=== PATIENT | female | born 1980 | race African-American/Black ===

== ENCOUNTER 2016-09-09 19:31 | Inpatient (IN) | payer OTHER ==
[~2016-09-09] VITALS: Ht 157.5 cm; Wt 73.0 kg
[2016-09-09] MEDS: LACTATED RINGER'S 1000 ML INJ 1,000 ML IV SCH ×2 (13:03→19:43)
[~2016-09-09 19:31] MED LIST: CITRIC ACID-SODIUM CITRATE LIQ 30 ML UDC PO ONE; LABE100T2 PO; PREN1CAP20 PO; ceFAZolin 2 GM PREMIX 50 ML IV ONE
[2016-09-09] MEDS ORDERED: LACTATED RINGER'S 1000 ML INJ 1,000 ML IV ONE (20:23)
--- NOTE | 2016-09-09 20:37 | HHI.HP ---
HPI Travel History International Travel<30 Days: No Contact w/Intl Traveler<30Days: No Known Affected Area: No History of Present Illness HPI This patient is a 36-year-old 3 para 2 EDC is September 26, 2016 presently at 37 weeks and 4 days she presents with the chief complaint of onset of contractions at 4:30 this morning she states that she's had leaking from her vagina No vaginal bleeding the baby is active care at [facility] high risk she was seen it when emma Robb last night sent home she was seen earlier today as well and sent home she is scheduled for a repeat section at [facility] on Monday morning care is complicated by advanced maternal age History of congestive heart failure Questionable history of [place] Chronic hypertension on [place] History of a fibrillation with external defibrillator History of lupus on no medication History of depression Ultrasound done in OB diagnostic on August 09 was selected gestational age is 34 weeks amniotic fluid index at that time was 11 vertex presentation the summary was the biometry is consistent with dates however the estimated weight is in the 20th percentile head circumference is less than the 5th percentile and the abdominal conference at the 12th percentile no abnormalities seen Limited anatomy due to gestational age normal amniotic fluid History Past Medical History Narrative Medical Patient is allergic to latex History of lupus History of chronic hypertension patient is on labetalol 150 mg by mouth twice a day History of heart disease Obstetric History Obstetric History Prior 1 Family History Family History: Negative Social History Alcohol Use: No Tobacco Use: No Substance Abuse: No Allergies-Medications (Allergen,Severity, Reaction): Coded Allergies: Latex (Verified Allergy, Unknown, 08/15/16) Home Meds Active Scripts W/O Vit A W/ Fe Carbo (Prenate Mini 18-0.6-0.4-350 mg)1 Cap Cap1 Tab PO DAILY #30 BOTTLE Ref 11 Prov:Loretta Parrish 02/23/16 Reported Medications Labetalol Hcl 100 Mg [id number] Mg PO BID 02/18/16 Review of Systems Gastrointestinal: Abdominal Pain Genitourinary: Other (leaking fluid) Physical Exam Narrative GENERAL: Well-nourished, well-developed patient. Patient is alert oriented 3 and cooperative in moderate distress secondary to uterine contractions SKIN: Warm and dry. HEAD: Normocephalic and atraumatic. EYES: No scleral icterus. No injection or drainage. ENT: No nasal drainage noted. Mucous membranes pink. Airway patent. NECK: Supple, trachea midline. No JVD. CARDIOVASCULAR: Regular rate and rhythm without murmurs, gallops, or rubs. No murmurs appreciated RESPIRATORY: Breath sounds equal bilaterally. No accessory muscle use. Lungs are clear ABDOMEN/GI: Abdomen soft, non-tender, bowel sounds present, no rebound, no guarding gravid consistent with 38 weeks gestation Gravid to [-] weeks size Fundal Height: [-] GENITOURINARY: External Genitalia: intact and normal in appearance BUS glands: [-] Cervix: [-] Midline Dilatation: [-] 2 cm Effacement: [-] 80% Station: [-] -2 station Presentation: [-] Vertex Membranes: [ ruptured] Uterine Contractions: [-] Irregular FHT's: Category: [-]1 Baseline: [-]150 Reactive: [-] + Variability: [-] Moderate ssjx-up-cbds variability Decels: [-] 0 EXTREMITIES: No cyanosis 2+ edema of her lower extremities reflexes are 2+ NEUROLOGICAL: Awake and alert. Motor and sensory grossly within normal limits. Five out of 5 muscle strength in all muscle groups. Normal speech. Data Data Vital Signs Reviewed: Yes (blood pressure in the 1 134/79 pulse is 79 she is afebrile) Orders Ob (2e) Additional Admit Info (09/09/16 20:13) Admit To Inpatient (09/09/16 20:23) Code Status (09/09/16 20:23) Vital Signs (Adult) .ON ADMISSION (09/09/16 20:23) Activity Oob Ad Shyla (09/09/16 20:23) ^ Heart (09/09/16 20:23) ^ Preps (09/09/16 20:23) Scd / [place] / Foot Pump NARCISA.QSHIFT (09/09/16 20:23) ^ Ultrasound For Locatio (09/09/16 20:23) Diet Npo (09/10/16 Breakfast) Lactated Ringer's 1000 Ml Inj (Lr 1000 M (09/09/16 20:23) Lactated Ringer's 1000 Ml Inj (Lr 1000 M (09/09/16 13:03) Cefazolin 2 Gm Premix (Ancef 2 Gm Premix (09/09/16 13:45) Citric Acid-Sodium Citrate Liq (Bicitra (09/09/16 14:15) Type And Screen (09/09/16 20:23) Complete Blood Count With Diff (09/09/16 20:23) Urinalysis - C+S If Indicated (09/09/16 20:23) Comprehensive Metabolic Panel (09/09/16 20:23) Electrocardiogram (09/09/16 ) Assessment/Plan Assessment and Plan The assessment is a 36-year-old 3 para 2 presently at 37 weeks and 4 days Premature rupture of membranes Early labor Previous 1 Advanced maternal age Chronic hypertension on labetalol History of heart disease Lupus Latex allergy Spoke with Dr. Pritchard at [facility] he reviewed the notes that he had on the patient she recently had an echocardiogram with a 57% ejection fraction has been cleared by cardiology to proceed with the section He offered to except her as a transfer if the patient wanted to be transferred. The patient however does not want to be transferred and wants to remain at [facility] Will notify anesthesia EKG is done its normal sinus rhythm normal EKG The procedure indications and complications have been fully discussed with the patient she understands and agrees Will proceed Plan; admit External monitoring CBC CMP uric Urinalysis Urine drug screen Spoken with Carolin Robb in an attempt to get a copy of her records however was told that they do not have access as that office is closed as well as medical records is closed 12-lead EKG We'll discuss with anesthesia Prep for repeat Procedure indications and complications have been fully discussed with the patient she understands and agrees desires to proceed Holli Childs MD Sep 09, 2016 20:36
[2016-09-09] MEDS ORDERED: COLA100C3 PO (20:53)
[2016-09-09] MEDS ORDERED: ALBUAER3 INH (20:53)
[2016-09-09] MEDS ORDERED: ASPI81CH CHEW (20:53)
[2016-09-09] MEDS ORDERED: ceFAZolin INJ 1,000 MG VIAL ONE (20:58)
[2016-09-09] MEDS ORDERED: LABETALOL HCL 200 MG TAB PO SCH (21:00)
[2016-09-09 21:11] LABS: AUTOMATED NEUTROPHIL # 5.1 TH/MM3 (1.8-7.7); BASOPHIL % 0.3 % (0.0-2.0); EOSINOPHIL % 0.5 % (0.0-4.0); HEMATOCRIT 35.3 % (35.0-46.0); HEMO FLAGS DIFF FINAL; LYMPH % 24.7 % (9.0-44.0); MEAN CELL VOLUME 92.5 FL (80.0-100.0); MEAN CORPUSCULAR HEMOGLOBIN 32.4 PG (27.0-34.0); MEAN CORPUSCULAR HGB CONC 35.1 % (32.0-36.0); MONO % 13.1 % (0.0-8.0); NEUT % 61.4 % (16.0-70.0); PLATELET COUNT 146 TH/MM3 (150-450); RED BLOOD COUNT 3.82 MIL/MM3 (4.00-5.30); RED CELL DISTRIBUTION WIDTH 13.3 % (11.6-17.2); WHITE BLOOD COUNT 8.3 TH/MM3 (4.0-11.0)
[2016-09-09] MEDS ORDERED: ONDANSETRON HCL 4 MG/2 ML VIAL ONE (21:13)
--- NOTE | 2016-09-09 21:14 | EKG ---
Date Performed: 09/09/2016 Time Performed: 20:46:16 PTAGE: 36 years EKG: Sinus rhythm NORMAL ECG PREVIOUS TRACING : 03/21/2014 20.52 No significant change DOCTOR: Michele Sinclair Interpretating Date/Time 09/09/2016 21:13:29
[2016-09-09 21:33] LABS: BACTERIA, URINE MOD /hpf; BLOOD, URINE MOD (NEG); COMMENT (UR) CULTURE INDICATED; CULTURE IF INDICATED CULTURE INDICATED; GLUCOSE,URINE NEG (NEG); KETONE, URINE NEG (NEG); MUCUS URINE FEW /lpf (OCC); NITRITE,URINE NEG (NEG); PH, URINE 6.5 (5.0-8.5); SQUAMOUS EPITHELIAL CELL URINE 14 /hpf (0-5); URINE COLOR YELLOW (YELLW/STRAW)
[2016-09-09] MEDS ORDERED: OXYTOCIN 10 UNIT/ML AMP ONE (21:44)
[2016-09-09] MEDS ORDERED: METHYLERGONOVINE MALEATE 0.2 MG/ML VIAL ONE (21:44)
[2016-09-09 21:46] LABS: ANION GAP 8 MEQ/L (5-15); AST (GOT) 14 U/L (15-37); BICARBONATE 22.8 MEQ/L (21.0-32.0); BLOOD UREA NITROGEN 7 MG/DL (7-18); CHLORIDE 108 MEQ/L (98-107); GLOMERULAR FILTRATION RATE 128 ML/MIN (>89); POTASSIUM 3.7 MEQ/L (3.5-5.1); SODIUM (NA) 139 MEQ/L (136-145)
[2016-09-09 21:49] LABS: ALKALINE PHOSPHATASE 261 U/L (45-117); ALT (GPT) 15 U/L (10-53); TOTAL BILIRUBIN ADULT 0.5 MG/DL (0.2-1.0)
[2016-09-09] MEDS ORDERED: EPIDURAL-DIPHENHYDRAMINE HCL 50 MG CAP PO PRN (22:00)
[2016-09-09] MEDS ORDERED: EPIDURAL-NO SYSTEMIC NARCOTICS XX PRN (22:00)
[2016-09-09] MEDS ORDERED: EPIDURAL-DIPHENHYDRAMINE HCL 50 MG/ML VIAL IV PUSH PRN (22:00)
[2016-09-09] MEDS ORDERED: EPIDURAL-DO NOT ADMINISTER ANTICOAGULANTS XX PRN (22:00)
[2016-09-09] MEDS ORDERED: EPIDURAL-NALOXONE HCL 0.4 MG/ML AMP IV PRN (22:00)
[2016-09-09] MEDS ORDERED: MORPHINE SULFATE PF 5 MG/10 ML VIAL ONE (22:56)
[2016-09-09] MEDS ORDERED: ACETAMINOPHEN 325 MG TAB PO PRN (23:00)
[2016-09-09] MEDS ORDERED: ZOLPIDEM TARTRATE 5 MG TAB PO PRN (23:00)
[2016-09-09] MEDS ORDERED: ONDANSETRON HCL 4 MG/2 ML VIAL IV PUSH PRN (23:00)
[2016-09-09] MEDS ORDERED: ACETAMINOPHEN 1000 MG/100 ML VIAL IV ONE (23:00)
[2016-09-09] MEDS ORDERED: OXYTOCIN 30 UNITS-500ML PREMIX 500 ML IV ONE (23:00)
[2016-09-09] MEDS ORDERED: KETOROLAC TROMETHAMINE 60 MG/2 ML (IM) VIAL IM PRN (23:00)
[2016-09-09] MEDS ORDERED: SODIUM CHLORIDE 0.9% FLUSH 5 ML FLUSH IV PRN (23:00)
[2016-09-09] MEDS: *MEPERIDINE 25 MG INJ VIAL PERIprocedural Use ONLY ONE (23:05)
--- NOTE | 2016-09-09 23:06 | PD.OP ---
Operative Report Date of Surgery: Sep 09, 2016 Preoperative Diagnosis: Intrauterine at 37 weeks Previous section Multiparity Premature rupture membranes Advanced maternal age History of cardiac disease Chronic hypertension Postoperative Diagnosis: Same Meconium stained Procedure: Repeat low segment transverse section Bilateral tubal ligation Anesthesia: Spinal Surgeon: Holli Calderon Windows Technical Specialist(s): OR staff Resident Surgeon: None Operation and Findings: Preop diagnosis : ( ) Anesthesia: (Spinal ) Anesthesiologist:: ( Rey ) Estimated blood loss: (800 cc ) Sponge and instrument count: (Correct ) Drains: (None ) Complications: (None ) Indications for procedure: ( ) Findings: (Viable male infant weight 2555 g Apgars of 8 at 1 minute 9 at 5 minutes light meconium ) Timeout done The patient was taken to the operating room after appropriate levels of spinal anesthesia were achieved she was placed in the supine position. A Barbosa catheter was inserted under sterile conditions and draining adequate clear urine. Intermittent compression hoses were placed and functioning. Bovie pad was placed and grounded. The abdomen was shaved prepped and draped in the usual sterile fashion. A transverse Pfannenstiel incision was made carried down through the skin subcutaneous tissue. The fascia was opened transversely. from the muscles in the midline. The rectus muscles were . Peritoneal cavity opened and the abdominal cavity entered. The bladder flap was taken down transversely and a low segment transverse incision made into the lower uterine segment. The fluid was ( lightly meconium-stained). The infant was vertex. The vertex was delivered nose and mouth suctioned well the remainder of the body was then delivered. Cord doubly clamped and cut and the infant handed over to the awaiting nursing staff. The placenta spontaneously delivered intact with fundal massage. The uterus was then exteriorized cleaned of excessive blood and debris. The incision was then closed with 0 chromic in a continuous interlocking stitch. Single-layer closure. Bleeding from the right uterine artery controlled Tubes and ovaries were inspected and found to be normal. Tubal ligation was then done the right tube was grasped in the ampullary portion and an avascular portion of the nasal salpinx was traversed distal and proximal ties of O plain were placed on the tube and the intervening tube was removed exposed ostia was were cauterized no active bleeding same procedure done on the left side time the left tube. The abdominal cavity was then irrigated. The uterus placed back into the abdomen. Paracolic gutters cleaned of excessive blood and debris. Interceed was then placed over the incision and the anterior surface of the uterus in an inverted T. The peritoneum was then closed with 2-0 Vicryl. The muscles reapproximated. Inspection of the muscle bed demonstrated no bleeding. The fascia was then closed with 0 Vicryl in a continuous stitch. The subcutaneous tissue was irrigated bleeders controlled with Bovie. Isabelle's fascia closed with 2-0 Vicryl. The skin was closed using ( subcuticular stitch on 3-0 Monocryl on a Juma needle). The uterus was massaged clearing blood and clots. The patient was cleaned. Pressure dressing and abdominal binder placed. Patient then transferred to the recovery room in stable condition, where her vital signs are (stable with blood pressures 120s over 60s ). Urine is clear and adequate. Baby transferred to the nursery in stable condition. Patient be monitored on CICU overnight Holli Childs MD Sep 09, 2016 23:05
[2016-09-10] VITALS (12 sets, daily range): BP systolic 135–146; BP diastolic 73–99; PULSE 65–90; RESP 18–20; TEMP 98.3–98.6; O2SAT 97–100
[2016-09-10] MEDS: LACTATED RINGER'S 1000 ML INJ 1,000 ML IV SCH ×5 (02:23→12:59)
[2016-09-10 04:23] LABS: AMPHETAMINE, URINE NEG (NEG); BARBITURATES, URINE NEG (NEG); COCAINE, URINE NEG (NEG)
[2016-09-10 06:26] LABS: AUTOMATED NEUTROPHIL # 11.3 TH/MM3 (1.8-7.7); BASOPHIL % 0.3 % (0.0-2.0); HEMATOCRIT 31.6 % (35.0-46.0); HEMO FLAGS DIFF FINAL; LYMPH % 9.4 % (9.0-44.0); LYMPHOCYTE # 1.3 TH/MM3 (1.0-4.8); MEAN CELL VOLUME 93.5 FL (80.0-100.0); MEAN CORPUSCULAR HEMOGLOBIN 31.3 PG (27.0-34.0); MEAN CORPUSCULAR HGB CONC 33.5 % (32.0-36.0); MONO % 6.9 % (0.0-8.0); NEUT % 83.4 % (16.0-70.0); PLATELET COUNT 133 TH/MM3 (150-450); RED BLOOD COUNT 3.38 MIL/MM3 (4.00-5.30); RED CELL DISTRIBUTION WIDTH 13.9 % (11.6-17.2); WHITE BLOOD COUNT 13.5 TH/MM3 (4.0-11.0)
[2016-09-10] MEDS: oxyCODONE/ACETAMINOPHEN 5 MG/325 MG TAB PO PRN ×4 (08:07→21:54)
[2016-09-10] MEDS: SODIUM CHLORIDE 0.9% FLUSH 5 ML FLUSH IV SCH ×2 (08:08→20:46)
[2016-09-10] MEDS ORDERED: OXYTOCIN 30 UNITS-500ML PREMIX 500 ML IV PRN (09:00)
--- NOTE | 2016-09-10 09:34 | HHI.OB ---
Subjective Post Operative Day: 1 Remarks Postoperative day number 1. AFVSS overnight. Pain controlled. Incision not draining. Decreased lochia. Denies dysuria. No breast tenderness. She is feeding the baby via bottle. Appetite good. No nausea or vomiting. Positive flatus. Negative bowel movement. Ambulating well. Denies calf pain, shortness of breath, or cough. Otherwise, she is doing well this morning and has no other complaints. Objective Vitals/I&O Vital Signs Date Time Temp Pulse Resp B/P Pulse Ox O2 Delivery O2 Flow Rate FiO2 09/10/16 08:11 98.3 74 18 141/87 97 09/10/16 08:11 97 Room Air 09/10/16 06:00 71 09/10/16 05:00 74 09/10/16 04:00 98.3 72 20 135/73 100 09/10/16 04:00 72 09/10/16 03:00 68 09/10/16 02:00 74 09/10/16 01:30 65 09/10/16 01:20 98.6 65 20 146/99 99 09/10/16 00:30 98.2 69 14 140/88 96 Nasal Cannula 3 09/10/16 00:15 60 14 142/83 96 Nasal Cannula 3 09/10/16 00:00 77 16 145/79 97 Nasal Cannula 3 09/09/16 23:45 70 16 135/83 96 Nasal Cannula 3 09/09/16 23:30 81 16 129/81 96 Nasal Cannula 3 09/09/16 23:15 62 16 149/86 94 Nasal Cannula 3 09/09/16 23:02 98.4 74 16 124/66 89 Nasal Cannula 3 Intake & Output 09/10/16 09/10/16 07:00 19:00 Intake Total 2980 ml Output Total 1950 ml Balance 1030 ml Intake Oral 480 ml IV Total 1000 ml Other 1500 ml Output Urine Total 1250 ml Estimated Blood Loss 500 ml Other 200 ml # Bowel Movements 0 Result Diagram: 09/10/1652109/09/162027 Objective Remarks GENERAL: Well-nourished, well-developed patient. CARDIOVASCULAR: Regular rate and rhythm without murmurs, gallops, or rubs. RESPIRATORY: Breath sounds equal bilaterally. No accessory muscle use. ABDOMEN/GI: Abdomen soft, non-tender, bowel sounds present. Incision: Clean, dry and intact. Fundus: Firm, non-tender at umbilicus. GENITOURINARY: Light to moderate bleeding. EXTREMITIES: No cyanosis or edema, non-tender, without signs of DVT. Medications and IVs Current Medications Medications (Trade) Dose Ordered Sig/Mami Route Start Time Stop Time Status Last Admin Lactated Ringer's 1,000 ml @ 150 mls/hr Q6H40M IV 09/09/16 13:03 09/10/16 08:08 (Lr 1000 ml Inj) 1,000 ml @ 100 mls/hr Q10H IV 09/10/16 03:55 09/10/16 23:54 09/10/16 04:47 (NS Flush) 2 ml BID IV 09/10/16 09:00 (NS Flush) 2 ml UNSCH PRN IV 09/09/16 23:00 (Mylicon Chew) 80 mg QID PRN PO 09/09/16 23:00 (Tylenol) 650 mg Q6H PRN PO 09/09/16 23:00 (Motrin) 600 mg Q6H PRN PO 09/09/16 23:00 (Toradol Inj) 30 mg Q6H PRN IM 09/09/16 23:00 09/10/16 22:59 09/10/16 04:13 (Percocet 5-325 Mg) 1 tab Q4H PRN PO 09/09/16 23:00 09/10/16 08:07 Oxycodone/ Acetaminophen 2 tab 2 tab Q4H PRN PO 09/09/16 23:00 (Ancef Inj/NS Inj) 100 ml @ 200 mls/hr Q8H IV 09/10/16 05:00 09/10/16 13:29 09/10/16 04:44 (Abbey-Colace) 2 tab Q12H PRN PO 09/09/16 23:00 (Ambien) 5 mg HS PRN PO 09/09/16 23:00 (M-M-R Ii Inj) 0.5 ml ONCE ONCE SQ 09/10/16 16:00 09/10/16 16:01 (Boostrix Inj) 0.5 ml ONCE ONCE IM 09/10/16 16:00 09/10/16 16:01 (Zofran Inj) 4 mg Q6H PRN IV PUSH 09/09/16 23:00 09/10/16 08:07 (Trandate) 100 mg Q12HR PO 09/10/16 09:00 Miscellaneous Information NO SYSTEMIC NARCOTICS TO BE GIVEN FO... UNSCH PRN XX 09/09/16 22:00 09/10/16 21:59 (Narcan Inj) 0.4 mg UNSCH PRN IV 09/09/16 22:00 09/10/16 21:59 (Benadryl Inj) 25 mg Q6H PRN IV PUSH 09/09/16 22:00 09/10/16 21:59 09/10/16 01:07 (Benadryl) 50 mg Q6H PRN PO 09/09/16 22:00 09/10/16 21:59 Miscellaneous Information ALL NURSING DEPARTMENTS UNSCH PRN XX 09/09/16 22:00 09/10/16 21:59 (Pneumovax-23 Inj) 25 mcg ONCE ONCE IM 09/11/16 10:00 09/11/16 10:01 (Flu (Quadrivalent) Vaccine Inj) 0.5 ml ONCE ONCE IM 09/11/16 10:00 09/11/16 10:01 Assessment/Plan Problem List: (1) High risk due to history of previous obstetrical problem, antepartum (2) Myocardial infarct, old (3) delivery delivered (4) care following delivery Assessment and Plan 36 y/o female who is POD# 1 s/p CXN. -Continue routine care. -Percocet and Motrin PRN pain. -Encouraged OOB. Advised pelvic rest for 6 wks. Will need a f/u appt. in 1 wk for incision check. -Re: ctrl, she understands this time. -D/c in 1-2 more days. 2. Old [place] with ejection fraction at 35% -Following recommendations per snow removing supervisor -will transfer to Mother baby unit with q4 monitoring entire hospitalization -Sinus rhythm overnight -Any complaints of chest pain will transfer to cardiac unit wdw OB attending Discharge Planning Plan for discharge next 2-3 days Johnathan Hines MD R2 Sep 10, 2016 09:34
[2016-09-10] MEDS: LABETALOL HCL 100 MG TAB PO SCH ×2 (10:02→20:43)
[2016-09-10] MEDS: IBUPROFEN 600 MG TAB PO PRN ×3 (11:50→23:37)
[2016-09-10] MEDS: SIMETHICONE 80 MG CHEWABLE TAB PO PRN (11:50)
[2016-09-10] MEDS ORDERED: DIPHTH/TETANUS/ACEL PERTUSSIS (BOOSTER) 0.5 ML VIAL/PFS IM ONE (16:00)
[2016-09-10] MEDS ORDERED: MEASLES, MUMPS, RUBELLA VACCINE 0.5 ML VIAL SQ ONE (16:00)
[2016-09-10] MEDS: DOCUSATE SODIUM 50 MG/SENNA 8.6 MG TAB PO PRN (20:43)
[2016-09-11] MEDS: SIMETHICONE 80 MG CHEWABLE TAB PO PRN (01:55)
[2016-09-11] MEDS: oxyCODONE/ACETAMINOPHEN 5 MG/325 MG TAB PO PRN ×5 (01:55→21:45)
[2016-09-11 03:25] VITALS: BP 115/82; PULSE 71; RESP 18; TEMP 97.9
[2016-09-11] MEDS: LACTATED RINGER'S 1000 ML INJ 1,000 ML IV SCH ×2 (05:03→09:31)
[2016-09-11] MEDS: IBUPROFEN 600 MG TAB PO PRN ×4 (05:48→23:18)
[2016-09-11 07:50] VITALS: BP 136/88; PULSE 78; RESP 16; TEMP 98.1
--- NOTE | 2016-09-11 08:11 | HHI.OB ---
Subjective Post Operative Day: 2 Remarks Postoperative day number 2. AFVSS overnight. Pain controlled. Incision not draining. Decreased lochia. Denies dysuria. No breast tenderness. She is feeding the baby via bottle. Appetite good. No nausea or vomiting. Positive flatus. Negative bowel movement. Ambulating well. Denies calf pain, shortness of breath, or cough. Otherwise, she is doing well this morning and has no other complaints. Objective Vitals/I&O Vital Signs Date Time Temp Pulse Resp B/P Pulse Ox O2 Delivery O2 Flow Rate FiO2 09/11/16 03:25 97.9 71 18 115/82 09/11/16 03:25 18 09/10/16 20:43 18 09/10/16 20:43 18 09/10/16 10:00 73 09/10/16 09:00 90 09/10/16 08:11 98.3 74 18 141/87 97 09/10/16 08:11 97 Room Air Result Diagram: 09/10/1652109/09/162027 Objective Remarks GENERAL: Well-nourished, well-developed patient. CARDIOVASCULAR: Regular rate and rhythm without murmurs, gallops, or rubs. RESPIRATORY: Breath sounds equal bilaterally. No accessory muscle use. ABDOMEN/GI: Abdomen soft, non-tender, bowel sounds present. Incision: Clean, dry and intact. Fundus: Firm, non-tender at umbilicus. GENITOURINARY: Light to moderate bleeding. EXTREMITIES: No cyanosis or edema, non-tender, without signs of DVT. Medications and IVs Current Medications Medications (Trade) Dose Ordered Sig/Mami Route Start Time Stop Time Status Last Admin (Lr 1000 ml Inj) 1,000 ml @ 150 mls/hr Q6H40M IV 09/09/16 13:03 09/10/16 08:08 (NS Flush) 2 ml BID IV 09/10/16 09:00 09/10/16 20:46 (NS Flush) 2 ml UNSCH PRN IV 09/09/16 23:00 (Mylicon Chew) 80 mg QID PRN PO 09/09/16 23:00 09/11/16 01:55 (Tylenol) 650 mg Q6H PRN PO 09/09/16 23:00 (Motrin) 600 mg Q6H PRN PO 09/09/16 23:00 09/11/16 05:48 (Percocet 5-325 Mg) 1 tab Q4H PRN PO 09/09/16 23:00 09/11/16 05:48 (Percocet 5-325 Mg) 2 tab Q4H PRN PO 09/09/16 23:00 09/11/16 01:55 (Abbey-Colace) 2 tab Q12H PRN PO 09/09/16 23:00 09/10/16 20:43 (Ambien) 5 mg HS PRN PO 09/09/16 23:00 (Zofran Inj) 4 mg Q6H PRN IV PUSH 09/09/16 23:00 09/10/16 08:07 (Trandate) 100 mg Q12HR PO 09/10/16 09:00 09/10/16 20:43 (Pneumovax-23 Inj) 25 mcg ONCE ONCE IM 09/11/16 10:00 09/11/16 10:01 (Flu (Quadrivalent) Vaccine Inj) 0.5 ml ONCE ONCE IM 09/11/16 10:00 09/11/16 10:01 Assessment/Plan Problem List: (1) High risk due to history of previous obstetrical problem, antepartum (2) Myocardial infarct, old (3) delivery delivered (4) care following delivery Assessment and Plan 36 y/o female who is POD# 2 s/p CXN. -Continue routine care. -Percocet and Motrin PRN pain. -Encouraged OOB. Advised pelvic rest for 6 wks. Will need a f/u appt. in 1 wk for incision check. -Re: ctrl, she is uncertain at this time -D/c planned for tomorrow 2. Old [place] with ejection fraction at 35% -Following recommendations per ultrasonic cleaner -Continue to monitor on Mother baby unit with q4 monitoring entire hospitalization -Denied chest pain overnight -Any complaints of chest pain will transfer to cardiac unit wdw OB attending Discharge Planning Plan for discharge tomorrow Johnathan Hines MD R2 Sep 11, 2016 08:11
[2016-09-11] MEDS: SODIUM CHLORIDE 0.9% FLUSH 5 ML FLUSH IV SCH ×2 (09:00→21:45)
--- NOTE | 2016-09-11 09:02 | HHI.OB ---
Subjective Post Operative Day: 2 Remarks Pt doing well , tolerating diet, normal bowel bladder function positive flatus , pt seen with the family medicine residents and agree with their evaluation and plan. She'll be discharged tomorrow Objective Vitals/I&O Vital Signs Date Time Temp Pulse Resp B/P Pulse Ox O2 Delivery O2 Flow Rate FiO2 09/11/16 07:50 98.1 78 16 136/88 09/11/16 03:25 97.9 71 18 115/82 09/11/16 03:25 18 09/10/16 20:43 18 09/10/16 20:43 18 09/10/16 10:00 73 Result Diagram: 09/10/1622 09/09/162027 Objective Remarks GENERAL: Well-nourished, well-developed patient. CARDIOVASCULAR: Regular rate and rhythm without murmurs, gallops, or rubs. RESPIRATORY: Breath sounds equal bilaterally. No accessory muscle use. ABDOMEN/GI: Abdomen soft, non-tender, bowel sounds present. Incision: Clean, dry and intact. Fundus: Firm, non-tender at umbilicus. GENITOURINARY: Light to moderate bleeding. EXTREMITIES: No cyanosis or edema, non-tender, without signs of DVT. Medications and IVs Current Medications Medications (Trade) Dose Ordered Sig/Mami Route Start Time Stop Time Status Last Admin (Lr 1000 ml Inj) 1,000 ml @ 150 mls/hr Q6H40M IV 09/09/16 13:03 09/10/16 08:08 (NS Flush) 2 ml BID IV 09/10/16 09:00 09/10/16 20:46 (NS Flush) 2 ml UNSCH PRN IV 09/09/16 23:00 (Mylicon Chew) 80 mg QID PRN PO 09/09/16 23:00 09/11/16 01:55 (Tylenol) 650 mg Q6H PRN PO 09/09/16 23:00 (Motrin) 600 mg Q6H PRN PO 09/09/16 23:00 09/11/16 05:48 (Percocet 5-325 Mg) 1 tab Q4H PRN PO 09/09/16 23:00 09/11/16 05:48 (Percocet 5-325 Mg) 2 tab Q4H PRN PO 09/09/16 23:00 09/11/16 01:55 (Abbey-Colace) 2 tab Q12H PRN PO 09/09/16 23:00 09/10/16 20:43 (Ambien) 5 mg HS PRN PO 09/09/16 23:00 (Zofran Inj) 4 mg Q6H PRN IV PUSH 09/09/16 23:00 09/10/16 08:07 (Trandate) 100 mg Q12HR PO 09/10/16 09:00 09/10/16 20:43 (Pneumovax-23 Inj) 25 mcg ONCE ONCE IM 09/11/16 10:00 09/11/16 10:01 (Flu (Quadrivalent) Vaccine Inj) 0.5 ml ONCE ONCE IM 09/11/16 10:00 09/11/16 10:01 Assessment/Plan Problem List: (1) High risk due to history of previous obstetrical problem, antepartum (2) Myocardial infarct, old (3) delivery delivered (4) care following delivery Assessment and Plan 36 y/o female who is POD# 2 s/p CXN. -Continue routine care. -Percocet and Motrin PRN pain. -Encouraged OOB. Advised pelvic rest for 6 wks. Will need a f/u appt. in 1 wk for incision check. -Re: ctrl, she is uncertain at this time -D/c planned for tomorrow 2. Old [place] with ejection fraction at 35% -Following recommendations per research hydrologist -Continue to monitor on Mother baby unit with q4 monitoring entire hospitalization -Denied chest pain overnight -Any complaints of chest pain will transfer to cardiac unit wdw OB attending Discharge Planning Plan for discharge tomorrow Juan Diego Rodriguez II, MD Sep 11, 2016 09:02
[2016-09-11] MEDS: LABETALOL HCL 100 MG TAB PO SCH ×2 (09:24→21:45)
[2016-09-11] MEDS ORDERED: INFLUENZA VIRUS VACCINE (QUADRIVALENT) 0.5 ML SYR IM ONE (10:00)
[2016-09-11] MEDS ORDERED: PNEUMOCOCCAL POLYVALENT INJ 25 MCG/0.5 ML SYR IM ONE (10:00)
[2016-09-11] MEDS: DOCUSATE SODIUM 50 MG/SENNA 8.6 MG TAB PO PRN (12:07)
[2016-09-11 15:00] VITALS: BP 140/90; PULSE 72; RESP 18
[2016-09-12] MEDS: DOCUSATE SODIUM 50 MG/SENNA 8.6 MG TAB PO PRN (01:29)
[2016-09-12] MEDS: oxyCODONE/ACETAMINOPHEN 5 MG/325 MG TAB PO PRN ×3 (01:29→09:47)
[2016-09-12] MEDS: IBUPROFEN 600 MG TAB PO PRN ×2 (06:00→12:29)
[2016-09-12] MEDS: SIMETHICONE 80 MG CHEWABLE TAB PO PRN ×2 (08:26→12:28)
[2016-09-12] MEDS: LABETALOL HCL 100 MG TAB PO SCH (08:26)
[2016-09-12 09:05] VITALS: BP 162/109; PULSE 80; RESP 16
[2016-09-12] MEDS ORDERED: LABE100T2 PO (09:33)
[2016-09-12] MEDS ORDERED: SENN1TAB PO (09:33)
[2016-09-12] MEDS ORDERED: IBUP-232 PO (09:33)
[2016-09-12] MEDS ORDERED: SIME80CH PO (09:33)
--- NOTE | 2016-09-12 09:37 | HHI.DCPOC ---
Discharge Care Plan Diagnosis: (1) Myocardial infarct, old (2) History of lupus (3) Chronic heart failure (4) Hypertension affecting Goals to Promote Your Health * To prevent worsening of your condition and complications * To maintain your health at the optimal level Directions to Meet Your Goals Take your medications as prescribed Follow your dietary instruction Follow activity as directed Keep your appointments as scheduled Take your immunizations and boosters as scheduled If your symptoms worsen call your PCP, if no PCP go to Urgent Care Center or Emergency Room Smoking is Dangerous to Your Health. Avoid second hand smoke Call the 24-hour hour crisis hotline for domestic abuse at Adonis Elkins MD R2 Sep 12, 2016 09:37
--- NOTE | 2016-09-12 09:53 | HHI.OB ---
Subjective Post Operative Day: 3 Remarks Postoperative day number 3. AFVSS overnight. Pain well-controlled. Incision not draining. Decreased lochia. Denies dysuria. No breast tenderness. She is feeding the baby via bottle. Appetite good. No nausea or vomiting. Endorses flatus. No bowel movement. Ambulating well. Denies calf pain, shortness of breath, or cough. Denies headache, blurry vision, lightheadedness/dizziness. Otherwise, she is doing well this morning and has no other complaints. (Allen Arnold MD R1) Objective Vitals/I&O Vital Signs Date Time Temp Pulse Resp B/P Pulse Ox O2 Delivery O2 Flow Rate FiO2 09/12/16 03:40 18 09/11/16 20:25 18 09/11/16 15:00 72 18 140/90 (Allen Arnold MD R1) Result Diagram: 09/10/1652109/09/162027 Objective Remarks GENERAL: Well-nourished, well-developed patient. CARDIOVASCULAR: Regular rate and rhythm without murmurs, gallops, or rubs. RESPIRATORY: Breath sounds equal bilaterally. No accessory muscle use. ABDOMEN/GI: Abdomen soft, non-tender, bowel sounds present. Incision: Clean, dry and intact. Fundus: Firm, non-tender at umbilicus. GENITOURINARY: Light to moderate bleeding. EXTREMITIES: No cyanosis or edema, non-tender, without signs of DVT. Medications and IVs Current Medications Medications (Trade) Dose Ordered Sig/Mami Route Start Time Stop Time Status Last Admin (Lr 1000 ml Inj) 1,000 ml @ 150 mls/hr Q6H40M IV 09/09/16 13:03 09/10/16 08:08 (NS Flush) 2 ml BID IV 09/10/16 09:00 09/11/16 21:45 (NS Flush) 2 ml UNSCH PRN IV 09/09/16 23:00 (Mylicon Chew) 80 mg QID PRN PO 09/09/16 23:00 09/12/16 08:26 (Tylenol) 650 mg Q6H PRN PO 09/09/16 23:00 (Motrin) 600 mg Q6H PRN PO 09/09/16 23:00 09/12/16 06:00 (Percocet 5-325 Mg) 1 tab Q4H PRN PO 09/09/16 23:00 09/12/16 05:59 (Percocet 5-325 Mg) 2 tab Q4H PRN PO 09/09/16 23:00 09/11/16 01:55 (Abbey-Colace) 2 tab Q12H PRN PO 09/09/16 23:00 09/12/16 01:29 (Ambien) 5 mg HS PRN PO 09/09/16 23:00 (Zofran Inj) 4 mg Q6H PRN IV PUSH 09/09/16 23:00 09/10/16 08:07 (Trandate) 100 mg Q12HR PO 09/10/16 09:00 09/12/16 08:26 (Allen Arnold MD R1) Assessment/Plan Problem List: (1) High risk due to history of previous obstetrical problem, antepartum (2) Myocardial infarct, old (3) delivery delivered (4) care following delivery Assessment and Plan 36 y/o female who is POD# 3 s/p CXN. -Continue routine care. -Percocet and Motrin PRN pain. -Encouraged OOB. Advised pelvic rest for 6 wks. Will need a f/u appt. in 1 wk for incision check. -Re: ctrl, she is uncertain at this time -D/c today 2. 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 Hypertension - 175/107 this morning. Asymptomatic - Decreased to systolic 150-160s after morning dose of labetalol - Will re-evaluate later this morning. - Continue labetalol 100mg BID, may increased dose or frequency based on readings later today julisa Trevizo Discharge Planning Plan for discharge today (Allen Arnold MD R1) Attending Attestation The exam, history, and the medical decision-making described in the above note were completed with the assistance of the resident provider. I reviewed and agree with the findings presented. I attest that I had a [id number] encounter with the patient on the same day, and personally performed and documented my assessment and findings in the medical record. (Tiffanie Trevizo MD) Allen Arnold MD R1 Sep 12, 2016 09:52 Tiffanie Trevizo MD Sep 12, 2016 10:01
[2016-09-12 10:05] VITALS: BP 150/98; PULSE 76; RESP 16
[2016-09-16 13:47] LABS: OBMETHADONE UR NEG (NEG); PHENCYCLIDINE URINE NEG (NEG)
[2016-09-16 13:48] LABS: BATH SALTS (MDPV) UR NEG (NEG); ECSTASY (MDMA) UR NEG (NEG); HEROIN (6-ACETYLMORPHINE) UR NEG (NEG); K2 SPICE UR NEG (NEG); OXYCODONE (PERCODAN) NEG (NEG)
[2016-09-21] MEDS ORDERED: IBUP-232 PO (14:51)
[2016-09-21] MEDS ORDERED: FURO1TAB62 PO (14:52)
[2016-10-13] MEDS ORDERED: SIME80CH CHEW (14:32)
[2016-10-13] MEDS ORDERED: BUTA1CAP PO (14:32)
[2016-10-13] MEDS ORDERED: POTA-243 PO (14:32)
[2016-10-13] MEDS ORDERED: IBUP-232 PO (14:42)
[2016-10-13] MEDS ORDERED: PROZ20CA11 PO (14:42)
== END 2016-09-12 12:33 | disposition home or self-care (01) | DRG 765 ==
LOC: HOBED 19:31 → H2EB 20:13 → HCIS 09-10 00:53 → H1EA 09-10 10:55
PROVIDERS: ADMIT Obstetrics & Gynecology; ATTEND Obstetrics & Gynecology
PROC: 10D00Z1 Extraction of Products of Conception, Low, Open Approach (ICD-10-PCS; principal; 2016-09-09)
PROC: 0UB70ZZ Excision of Bilateral Fallopian Tubes, Open Approach (ICD-10-PCS; 2016-09-09)
DX: O34.219 Maternal care for unspecified type scar from previous cesarean delivery (principal); O10.92 Unspecified pre-existing hypertension complicating childbirth; O26.893 Other specified pregnancy related conditions, third trimester; M32.9 Systemic lupus erythematosus, unspecified; O42.92 Full-term premature rupture of membranes, unspecified as to length of time between rupture and onset of labor; O77.0 Labor and delivery complicated by meconium in amniotic fluid; O09.523 Supervision of elderly multigravida, third trimester; I25.2 Old myocardial infarction; Z3A.37 37 weeks gestation of pregnancy; Z37.0 Single live birth; Z30.2 Encounter for sterilization; Z91.040 Latex allergy status; Z23 Encounter for immunization
CPT/HCPCS: 80053; 80307; 81001; 84112; 85025; 86403; 86850; 86900; 86901; 87086; 88302; 90686; 90715; 90732; 93005; 99285; G0481; J0131; J0690; J1200; J1885; J2175; J2210; J2274; J2405; J2590; J7120; Q2038

== ENCOUNTER 2017-05-15 13:44 | Emergency (ER) | payer BC, OTHER ==
[~2017-05-15] VITALS: Ht 160 cm; Wt 68.0 kg
[~2017-05-15 13:44] MED LIST changes: +ALBUAER3 INH; +ASPI81CH CHEW; +BUTA1CAP PO; -CITRIC ACID-SODIUM CITRATE LIQ 30 ML UDC PO ONE; +FURO1TAB62 PO; +IBUP-232 PO; +POTA-243 PO; -PREN1CAP20 PO; +PROZ20CA11 PO; +SIME80CH CHEW; -ceFAZolin 2 GM PREMIX 50 ML IV ONE
[2017-05-15 13:45] VITALS: BP 184/95; PULSE 86; RESP 15; TEMP 98.4; O2SAT 98
--- NOTE | 2017-05-15 14:57 | PD ---
HPI Chief Complaint: Cold / Flu Symptoms Time Seen by Provider: 14:13 Travel History International Travel<30 days: No Contact w/Intl Traveler<30days: No Traveled to known affect area: No History of Present Illness HPI The patient was seen and examined in the presence of the nurse. This patient complains of cough congestion runny nose. When she coughs she has some chest discomfort. Symptom severity is moderate. PFSH Past Medical History Asthma: Yes Anxiety: Yes Depression: Yes Heart Rhythm Problems: No Cardiac Catheterization: No Cardiovascular Problems: Yes (CHF) High Cholesterol: Yes Chest Pain: Yes Congestive Heart Failure: Yes Cerebrovascular Accident: Yes (TIA ) Diminished Hearing: No Endocrine: No Gastrointestinal Disorders: Yes Genitourinary: No Hiatal Hernia: Yes Hypertension: Yes Inguinal Hernia: Yes Implanted Vascular Access Dvce: Yes Musculoskeletal: No Neurologic: Yes Psychiatric: Yes Reproductive: No Respiratory: Yes (ASTHMA) Immunizations Current: Yes Migraines: Yes Myocardial Infarction: Yes (PT. WITH EXTERNAL DEFIBRILATOR) Seizures: No PNEUMOCCOCAL Vaccine (Year): 2 ?: Not : 2 Para: 2 Miscarriage: 0 : 0 Past Surgical History Abdominal Surgery: Yes (UMBILICAL HERNIA REPAIR) Body Medical Devices: EXTERNAL DEFIBALTOR Section: Yes Coronary Artery Bypass Graft: No Gynecologic Surgery: Yes (C SECTION ) Hysterectomy: Yes Tonsillectomy: Yes Other Surgery: Yes Social History Alcohol Use: No Tobacco Use: No Substance Use: No Allergies-Medications (Allergen,Severity, Reaction): Coded Allergies: latex (Unverified Allergy, Unknown, 04/18/17) doesn't have interaction with food. Reported Meds & Prescriptions Reported Meds & Active Scripts Active Prozac (Fluoxetine HCl) 20 Mg Cap 20 Mg PO DAILY Ibuprofen 600 Mg Tab 600 Mg PO Q6H PRN Lasix (Furosemide) 20 Mg Tab 20 Mg PO DAILY Labetalol (Labetalol HCl) 100 Mg Tab 100 Mg PO Q12HR Reported Simethicone 80 Mg Chw 80 Mg CHEW QID PRN Klor-Con 10 (Potassium Chloride) 10 Meq Tab 10 Meq PO BID Fioricet (Dzodiailwn-Euaataqjcqnbr-Xaoerzwe) 50-300-40 Mg Cap 1 Cap PO Q4H PRN Proair Hfa 8.5 GM Inh (Albuterol Sulfate) 90 Mcg/Act Aer 2 Puff INH Q4-6H PRN 108 mcg/actuation Aspirin 81 Mg Chew 81 Mg CHEW DAILY Review of Systems General / Constitutional: No: Fever Eyes: No: Visual changes HENT: Positive: Rhinorrhea, Congestion, No: Headaches Cardiovascular: Positive: Chest Pain or Discomfort Respiratory: Positive: Cough, No: Shortness of Breath Gastrointestinal: No: Abdominal Pain Genitourinary: No: Dysuria Musculoskeletal: No: Pain Skin: No Rash Neurologic: No: Weakness Psychiatric: No: Depression Endocrine: No: Polydipsia Hematologic/Lymphatic: No: Easy Bruising Physical Exam Narrative RESPIRATORY: Respiratory effort unlabored, no retractions or use of accessory muscles. Breath sounds are clear and symmetric. CARDIOVASCULAR: Regular rate and rhythm without murmur. Extremities showed no edema or varicosities. Readily reproducible chest wall tenderness on palpation GASTROINTESTINAL: Abdomen soft, non-tender, nondistended. Positive bowel sounds. No hepato-splenomegaly, or palpable masses. No guarding. Data Data Last Documented VS Vital Signs Date Time Temp Pulse Resp B/P (MAP) Pulse Ox O2 Delivery O2 Flow Rate FiO2 05/15/17 13:45 98.4 86 15 184/95 (124) 98 MDM Medical Decision Making Medical Screen Exam Complete: Yes Emergency Medical Condition: Yes Medical Record Reviewed: Yes Differential Diagnosis Bronchitis, flu syndrome, costochondritis Narrative Course I have reviewed the patient's electronic medical record. Presentation is consistent with acute viral syndrome. Her chest pain is clearly musculoskeletal and not requiring cardiac evaluation at this time. Supportive care discussed. No indication for antibiotics Diagnosis Primary Impression: Acute viral bronchitis Additional Impression: Musculoskeletal chest pain Additional Instructions: The patient was advised to follow up with their physician and return if they worsen. Med/Other Pt SpecificInfo: Other Disposition: 01 DISCHARGE HOME Condition: Stable Doug Bhakta MD May 15, 2017 14:56
== END 2017-05-15 15:33 | disposition home or self-care (01) ==
LOC: NEPD 13:44
DX: J20.8 Acute bronchitis due to other specified organisms (principal); R07.89 Other chest pain; J45.909 Unspecified asthma, uncomplicated; F41.9 Anxiety disorder, unspecified; F32.9 Major depressive disorder, single episode, unspecified; I11.0 Hypertensive heart disease with heart failure; I50.9 Heart failure, unspecified; I25.2 Old myocardial infarction; Z86.73 Personal history of transient ischemic attack (TIA), and cerebral infarction without residual deficits
CPT/HCPCS: 99281